=== PATIENT | female | born 1940 | race Caucasian/White ===

== ENCOUNTER 2016-07-09 08:40 | Day surgery (SDC) | payer BC ==
--- NOTE | ~2016-07-09 | OP ---
Record Of Operation [facility] [address] [place]. [address] NAME: SANDY GIRALDO : 40 STATUS : [facility]#: [id number] AGE: 75 ADM/REG DATE : 07/09/16 MR#: [id number] REPORT SERV DATE: 07/09/16 DICTATED BY: MARIA TERESA HIGGINS III DATE: 07/09/16 REPORT STATUS : Draft TRANSCRIBED BY: MODGamaliel DATE: 07/09/16 DATE OF PROCEDURE: 07/09/2016 PREOPERATIVE DIAGNOSIS: History of the patient with positive Hemoccult, status post resection of sigmoid colon in 2009 for diverticular disease with a Cristóbal procedure and later closure. This is the patient's first colonoscopy since that procedure. POSTOPERATIVE DIAGNOSIS: History of the patient with positive Hemoccult, status post resection of sigmoid colon in 2009 for diverticular disease with a Cristóbal procedure and later closure. This is the patient's first colonoscopy since that procedure. FINDINGS: Yarbrough-diverticulosis, greater on the left side than the right. Normal anastomosis. Grade 1 internal hemorrhoids and multiple polyps at the 25 cm eldon that were removed by hot snare and cold snare technique as well as cold biopsy forceps technique. ANESTHESIA: General with propofol in the left lateral decubitus position. DESCRIPTION OF PROCEDURE: The patient was placed in the left lateral decubitus position after dilation of the anal area. The Olympus scope was introduced and passed gently up through the rectal valves, up through the previous anastomosis and up through the descending colon where diverticular changes were seen that were uncomplicated. The scope was advanced along the splenic flexure, along the transverse colon to the hepatic flexure and down the ascending into the cecal bulb, where the ileocecal valve was seen to be unremarkable. Slow retraction was carried out with the patient having a fair prep with a fair amount of brown liquid stool still present, coating some of the wall. The scope was withdrawn slowly, and the 26-minute withdrawal period was documented. Polyps were seen at 25 cm on retraction view, and the hot snare was used to remove one of the polyps that was subcentimeter size. Another polyp adjacent was removed with cold biopsy technique, submitting them together since they were so close to each other. This was at the 25 cm eldon. The scope was then withdrawn without additional findings, and grade 1 internal hemorrhoids noted to be extremely mild. The estimated blood loss was minimal. Followup will be planned in about one to two years depending on pathology report. The patient also will need to be on high-fiber diet for diverticular disease with good hydration with six 8-ounce water equivalents daily. NATANAEL/ALEJA Maria Teresa Higgins III, M.D. / [id number] CC: Record Of Operation [address] [address] NAME: SANDY GIRALDO : 40 STATUS : [facility]#: [id number] AGE: 75 ADM/REG DATE : 07/09/16 MR#: [id number] REPORT SERV DATE: 07/09/16 DICTATED BY: MARIA TERESA HIGGINS III DATE: 07/09/16 REPORT STATUS : Draft TRANSCRIBED BY: ALEJA DATE: 07/09/16 Crystal Arteaga III, Jr., D.ORios
[~2016-07-09 08:40] MED LIST: ADVIL PO; ALTA2.5 PO; ASAB PO; CALTRA600D PO; FISH-EPA1000 MG PO; GLUCCHONDR PO; MSM500 MG OR; MULTIVIT/MIN PO; MULTIVITAMI1 PO; MVIUDL PO; NEUR400 PO; OS500+D PO; PRILO PO; VITAMIN D1000 UNI1 PO
== END 2016-07-09 23:59 | disposition home or self-care (01) ==
LOC: DMU 08:40
PROVIDERS: Surgery
PROC: 0DBE8ZZ Excision of Large Intestine, Via Natural or Artificial Opening Endoscopic (ICD-10-PCS; principal; 2016-07-09 10:00)
DX: D12.6 Benign neoplasm of colon, unspecified (principal); K57.90 Diverticulosis of intestine, part unspecified, without perforation or abscess without bleeding; K64.0 First degree hemorrhoids; K21.9 Gastro-esophageal reflux disease without esophagitis; I10 Essential (primary) hypertension; J44.9 Chronic obstructive pulmonary disease, unspecified; E04.9 Nontoxic goiter, unspecified; M19.90 Unspecified osteoarthritis, unspecified site; Z87.891 Personal history of nicotine dependence; Z88.8 Allergy status to other drugs, medicaments and biological substances; Z96.1 Presence of intraocular lens; Z90.89 Acquired absence of other organs; Z90.711 Acquired absence of uterus with remaining cervical stump; Z79.82 Long term (current) use of aspirin; Z79.899 Other long term (current) drug therapy; Z98.890 Other specified postprocedural states
CPT/HCPCS: 88305